=== PATIENT | male | born 1975 | race Caucasian/White ===

== ENCOUNTER 2017-01-20 02:25 | Emergency (ER) | payer OTHER ==
[2017-01-20 02:32] VITALS: TEMP 97.4
[2017-01-20] MEDS ORDERED: DIPH,PERTUS(ACELL)TETVAC-LF 0.5 ML VIAL IM ONE (02:58)
--- NOTE | 2017-01-20 03:02 | ED ---
Wound/Laceration HPI - General Chief Complaint: Wound/Laceration Stated Complaint: Hand Laceration Time Seen by Provider: 01/20/17 02:35 Source: patient, RN notes reviewed Mode of arrival: ambulatory Limitations: no limitations - History of Present Illness Initial Comments: Patient is a 40-year-old male presents to the emergency room for evaluation left hand laceration. Patient states he was cutting with an ax and accidentally got his hand. Patient states he is not sure when his last tetanus vaccine was. Patient denies tingling in his fingers. Patient states he immediately cleaned the area with peroxide after the incident. Patient denies any other injuries during incident. Patient denies taking blood thinners. - Related Data Home Medications Medication Instructions Recorded Confirmed Citalopram Hydrobromide [CeleXA] 20 mg PO DAILY 08/24/16 01/20/17 Metoprolol Tartrate [Lopressor] 50 mg PO DAILY 08/25/16 01/20/17 Allergies Allergy/AdvReac Type Severity Reaction Status Date / Time No Known Allergies Allergy Verified 08/25/16 09:03 Review of Systems ROS Statement: Those systems with pertinent positive or pertinent negative responses have been documented in the HPI. ROS Other: All systems not noted in ROS Statement are negative. Past Medical History Past Medical History: Hypertension Additional Past Medical History / Comment(s): pancreatitis, gall bladder sludge , elevated lever enzymes History of Any Multi-Drug Resistant Organisms: None Reported Past Surgical History: No Surgical Hx Reported Past Anesthesia/Blood Transfusion Reactions: No Reported Reaction Past Psychological History: PTSD Smoking Status: Never smoker Past Alcohol Use History: Daily Past Drug Use History: None Reported - Past Family History Mother Additional Family Medical History / Comment(s): Pancreatitis General Exam - General Exam Comments Initial Comments: Sitting in exam room in no acute distress. Limitations: no limitations General appearance: alert, in no apparent distress Head exam: Present: atraumatic, normocephalic, normal inspection Eye exam: Present: normal appearance ENT exam: Present: normal exam Neck exam: Present: normal inspection Respiratory exam: Absent: respiratory distress Left Hand Wrist exam: Present: full ROM, laceration (4 cm laceration along the thenar eminence. Another 1 cm laceration superior to the first laceration.). Absent: tenderness, swelling Hand L/R Front: 1 - laceration (4 cm) 2 - laceration (1 cm) Neuro motor exam: Present: wrist extension intact, thumb opposition intact, thumb IP flexion intact, thumb adduction intact, fingers 2-5 abduction intact Vascular: Present: normal capillary refill (Capillary refill less than 2 seconds ), radial pulse (2+), ulnar pulse (2+) Back exam: Present: normal inspection Neurological exam: Present: alert, oriented X3, CN II-XII intact, normal gait Psychiatric exam: Present: normal affect, normal mood Skin exam: Present: warm, dry. Absent: rash Course Vital Signs 01/20/17 01/20/17 02:28 04:02 Temperature 97.4 F L Pulse Rate 83 74 Respiratory 18 16 Rate Blood Pressure 136/65 128/72 O2 Sat by Pulse 97 97 Oximetry Procedures - Laceration Laceration #1 Consent Obtained: verbal consent Indication: laceration Site: other (left hand) Size (cm): 1 Description: linear Depth: simple, single layer Anesthetic Used: lidocaine 1% Anesthesia Technique: local infiltration Amount (mls): 1 Pre-repair: wound explored, irrigated extensively Type of Sutures: nylon Size of Sutures: 5-0 Number of Sutures: 2 Technique: simple, interrupted Patient Tolerated Procedure: well, no complications Laceration #2 Consent Obtained: verbal consent Indication: laceration Site: other (left hand) Size (cm): 4 Description: linear Depth: simple, single layer Anesthetic Used: lidocaine 1% Anesthesia Technique: local infiltration Amount (mls): 3 Pre-repair: wound explored, irrigated extensively Type of Sutures: nylon Size of Sutures: 5-0 Number of Sutures: 4 Technique: simple, interrupted Patient Tolerated Procedure: well, no complications Medical Decision Making - Medical Decision Making Patient is a 41-year-old male presents to the emergency room for evaluation of left hand lacerations. Lacerations repaired with sutures. Patient was updated on his tetanus vaccine. Advised patient to return in 10-12 days for suture removal. Patient states he understands everything that was discussed with him. Return parameters discussed. Case discussed with Dr. Galeano. Disposition Clinical Impression: Hand laceration Disposition: HOME SELF-CARE Condition: Good Instructions: Laceration (ED), Care For Your Stitches (ED) Additional Instructions: Clean suture area with a damp cloth. Please return in 10-12 days for suture removal. Take Tylenol or Motrin as needed for pain. Please follow up with primary care provider in 1-2 days. If any new symptom arises or symptoms worsen , return to ER as soon as possible. Referrals: Cleo Landry MD [Primary Care Provider] - 1-2 days Time of Disposition: 03:58
[2017-01-20 04:04] VITALS: BP 128/72; PULSE 74; RESP 16
== END 2017-01-20 04:02 | disposition home or self-care (01) ==
LOC: EC 02:25
DX: S61.412A Laceration without foreign body of left hand, initial encounter (principal); I10 Essential (primary) hypertension; F43.10 Post-traumatic stress disorder, unspecified; Z23 Encounter for immunization; Z79.899 Other long term (current) drug therapy; W27.0XXA Contact with workbench tool, initial encounter
CPT/HCPCS: 12002; 90471; 90715; 99282

== ENCOUNTER → 2018-05-02 | Outpatient (CLI) | payer OTHER ==
[2018-05-02 15:49] LABS: Basophils # (A) 0.1 k/uL (0-0.2); Basophils % (A) 1 %; Eosinophils # (A) 0.2 k/uL (0-0.7); Eosinophils % (A) 2 %; HCT 46.3 % (39.0-53.0); HGB 14.5 gm/dL (13.0-17.5); Lymphocytes # (A) 3.5 k/uL (1.0-4.8); Lymphocytes % (A) 33 %; MCH 29.1 pg (25.0-35.0); MCHC 31.4 g/dL (31.0-37.0); MCV 92.7 fL (80.0-100.0); Mean Platelet Volume 7.4; Monocytes # (A) 0.8 k/uL (0-1.0); Monocytes % (A) 7 %; Neutrophils # (A) 6.1 k/uL (1.3-7.7); Neutrophils % (A) 56 %; Platelet Count 153 k/uL (150-450); RBC 4.99 m/uL (4.30-5.90); RDW 13.5 % (11.5-15.5); WBC 10.8 k/uL (3.8-10.6)
[2018-05-02 15:54] LABS: ALT 71 U/L (21-72); AST 125 U/L (17-59); Albumin 4.6 g/dL (3.5-5.0); Alkaline Phosphatase 112 U/L (38-126); Anion Gap 19 mmol/L; Blood Urea Nitrogen 12 mg/dL (9-20); Carbon Dioxide 19 mmol/L (22-30); Chloride 103 mmol/L (98-107); Cholesterol 164 mg/dL (<200); Glucose 129 mg/dL (74-99); HDL Cholesterol 60 mg/dL (40-60); LDL Cholesterol,Calculated 71 mg/dL (0-99); Potassium 3.9 mmol/L (3.5-5.1); Sodium 141 mmol/L (137-145); Total Protein 8.9 g/dL (6.3-8.2); Triglycerides 164 mg/dL (<150)
[2018-05-02 17:55] LABS: Prostate Specific Antigen 0.11 ng/mL (0.00-4.00)
[2018-05-02 21:55] LABS: Hemoglobin A1C 5.6 % (4.0-6.0)
== END ==
LOC: LABWHC1 15:15
PROVIDERS: ATTEND Family Medicine
DX: R53.83 Other fatigue (principal); E03.9 Hypothyroidism, unspecified; I10 Essential (primary) hypertension; E78.00 Pure hypercholesterolemia, unspecified
CPT/HCPCS: 36415; 80053; 80061; 83036; 84153; 84402; 84403; 84443; 85025

== ENCOUNTER → 2018-05-26 | Outpatient (CLI) | payer OTHER | END | disposition home or self-care (01) | LOC: LABWHC1 13:38 | PROVIDERS: ATTEND Internal Medicine | DX: E29.1 Testicular hypofunction (principal) | CPT/HCPCS: 36415; 84402; 84403 ==

== ENCOUNTER 2018-09-18 18:21 | Emergency (ER) | payer OTHER ==
[2018-09-18 18:29] VITALS: BP 111/75; PULSE 89; RESP 18; TEMP 98.2
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
--- NOTE | 2018-09-18 19:47 | XR ---
EXAMINATION TYPE: XR lumbar spine 2 or 3V DATE OF EXAM: 09/18/2018 COMPARISON: NONE HISTORY: Right-sided rib pain. Back pain TECHNIQUE: 3 views FINDINGS: There is narrowing of the L5-S1 disc space. There is mild spurring of the endplates. There is no compression fracture. Posterior elements are intact. Sacroiliac joints are intact. IMPRESSION: Mild spondylotic changes. No fracture.
--- NOTE | 2018-09-18 19:55 | XR ---
EXAMINATION TYPE: XR chest 2V DATE OF EXAM: 09/18/2018 COMPARISON: 09/13/2010 HISTORY: Back pain TECHNIQUE: Frontal and lateral views of the chest are obtained. FINDINGS: Heart and mediastinum are normal. Lungs are clear. Diaphragm is normal. Bony thorax appear s normal. IMPRESSION: Normal chest. No change.
== END 2018-09-18 20:11 | disposition home or self-care (01) ==
LOC: EC 18:21
DX: S06.0X0A Concussion without loss of consciousness, initial encounter (principal); S29.9XXA Unspecified injury of thorax, initial encounter; M54.5 Low back pain; I10 Essential (primary) hypertension; F43.10 Post-traumatic stress disorder, unspecified; Z79.899 Other long term (current) drug therapy; W51.XXXA Accidental striking against or bumped into by another person, initial encounter; Y92.149 Unspecified place in prison as the place of occurrence of the external cause
CPT/HCPCS: 70450; 71046; 72100; 99284

== ENCOUNTER 2022-10-04 13:09 | Emergency (ER) | payer OTHER ==
[2022-10-04 14:15] LABS: Basophils # (A) 0.1 k/uL (0-0.2); Basophils % (A) 1 %; Eosinophils # (A) 0.2 k/uL (0-0.7); Eosinophils % (A) 3 %; HCT 46.5 % (39.0-53.0); HGB 14.7 gm/dL (13.0-17.5); Lymphocytes # (A) 2.7 k/uL (1.0-4.8); Lymphocytes % (A) 41 %; MCH 27.7 pg (25.0-35.0); MCHC 31.5 g/dL (31.0-37.0); MCV 87.8 fL (80.0-100.0); Mean Platelet Volume 7.7; Monocytes # (A) 0.3 k/uL (0-1.0); Monocytes % (A) 5 %; Neutrophils # (A) 3.2 k/uL (1.3-7.7); Neutrophils % (A) 48 %; Platelet Count 152 k/uL (150-450); RDW 13.3 % (11.5-15.5); WBC 6.6 k/uL (3.8-10.6)
[2022-10-04 14:26] LABS: Appearance,Urine Clear (Clear); Bilirubin,Urine Negative (Negative); Blood,Urine Negative (Negative); Color,Urine Yellow; Glucose,Urine (UA) Negative (Negative); Ketones,Urine Negative (Negative); Leukocyte Esterase,Urine Negative (Negative); Nitrite,Urine Negative (Negative); PH, Urine 5.5 (5.0-8.0); Protein,Urine Trace (Negative); Specific Gravity,Urine 1.024 (1.001-1.035); Urobilinogen,Urine <2.0 mg/dL (<2.0)
[2022-10-04 14:28] LABS: INR 1.1 (<1.2); Partial Thromboplastin Time 24.2 sec (22.0-30.0); Prothrombin Time 11.8 sec (9.0-12.0)
[2022-10-04 14:29] LABS: Albumin 4.1 g/dL (3.5-5.0); Calcium 8.5 mg/dL (8.4-10.2); Potassium 3.9 mmol/L (3.5-5.1); Total Bilirubin 0.7 mg/dL (0.2-1.3); Total Protein 8.1 g/dL (6.3-8.2)
--- NOTE | 2022-10-04 17:05 | CT ---
EXAMINATION TYPE: CT abdomen pelvis w con DATE OF EXAM: 10/04/2022 COMPARISON: 03/20/2014 HISTORY: elevated LFTs, 50lb weight loss in [address] DLP: 928.4 mGycm Automated exposure control for dose reduction was used. CONTRAST: Performed with IV Contrast, patient injected with 100 mL of Isovue 300. Images obtained from the diaphragm to the level of the pelvis with IV contrast. The lung bases are clear. No pleural effusion. Heart size is normal. No pericardial effusion. There i s mild fatty infiltration of the liver. Gallbladder is intact. No evidence of pancreatic mass. There is some amorphous 1 cm area of pancreatic calcification in the anterior pancreatic head and could rel ate to chronic pancreatitis. Pancreatic duct is not dilated. There is no adrenal mass. Kidneys have normal size and contour. No hydronephrosis. Ureters are not di lated. Delayed images show normal renal excretion. There is no retroperitoneal adenopathy. There is 2 cm fat-containing umbilical hernia. Appendix is posterior and medial and appears normal. Bladder distends smoothly. No inguinal hernia. No free fluid in the pelvis. No pelvic mass. There is no mesenteric edema. No ascites or free air. No sign of a bowel obstruction. The lumbar vert ebrae have normal alignment. There is narrowing at L5-S1 disc space. There is spurring anteriorly thr oughout the lumbar spine. No compression fracture. The bony pelvis is intact. The hip joints are inta ct. IMPRESSION: There is some fatty infiltration of liver which appears new compared to the old exam. Pancreatic calc ification consistent with chronic pancreatitis and appears new compared to the old exam. Hepatomegaly . Liver measures 21 cm. Liver slightly increased compared to old exam. Normal appendix.
--- NOTE | 2022-10-04 17:30 | XR ---
EXAMINATION TYPE: XR lumbar spine 2 or 3V DATE OF EXAM: 10/04/2022 COMPARISON: 09/18/2018 HISTORY: Back TECHNIQUE: 3 views FINDINGS: The lumbar vertebrae have normal alignment. There is mild spurring anteriorly of the endpla emelyn in the mid and lower lumbar spine. No compression fracture. Posterior elements are intact. Sacroi liac joints are intact. IMPRESSION: Mild hypertrophic degenerative changes. No fracture. No adverse change compared to the ol d exam.
--- NOTE | 2022-10-04 17:55 | ED ---
Recheck HPI - General Chief Complaint: Recheck/Abnormal Lab/Rx Stated Complaint: unexplained weight loss Time Seen by Provider: 10/04/22 15:31 Source: patient Mode of arrival: ambulatory Limitations: no limitations - History of Present Illness Initial Comments: Patient is a 47-year-old male presenting with chief complaint of fatigue. Patient states that he has had increasing fatigue over the last month. He also admits to unintentional 50 pound weight loss, drinks alcohol daily, has history of elevated LFTs. He admits to decreased appetite and nausea and vomiting. He denies any abdominal pain, chest pain, difficulty breathing, headache, vision or hearing changes. No history of cancer. He admits to chronic back pain. Patient has never had a colonoscopy. - Related Data Previous Rx's Medication Instructions Recorded Ondansetron Odt [Zofran Odt] 4 mg PO Q8HR PRN #20 tab 10/04/22 Allergies Allergy/AdvReac Type Severity Reaction Status Date / Time No Known Allergies Allergy Verified 10/04/22 17:50 Review of Systems ROS Statement: Those systems with pertinent positive or pertinent negative responses have been documented in the HPI. ROS Other: All systems not noted in ROS Statement are negative. Past Medical History Past Medical History: Hypertension Additional Past Medical History / Comment(s): pancreatitis, gall bladder sludge, elevated lever enzymes History of Any Multi-Drug Resistant Organisms: None Reported Past Surgical History: No Surgical Hx Reported Past Anesthesia/Blood Transfusion Reactions: No Reported Reaction Past Psychological History: PTSD Past Alcohol Use History: Daily Past Drug Use History: Marijuana - Past Family History Mother Additional Family Medical History / Comment(s): Pancreatitis General Exam Limitations: no limitations General appearance: alert, in no apparent distress Head exam: Present: atraumatic, normocephalic, normal inspection Eye exam: Present: normal appearance, PERRL, EOMI. Absent: scleral icterus, conjunctival injection, periorbital swelling Neck exam: Present: normal inspection, full ROM Respiratory exam: Present: normal lung sounds bilaterally. Absent: respiratory distress, wheezes, rales, rhonchi, stridor Cardiovascular Exam: Present: regular rate, normal rhythm, normal heart sounds. Absent: systolic murmur, diastolic murmur, rubs, gallop, clicks GI/Abdominal exam: Present: soft. Absent: distended, tenderness, guarding, rebound, rigid Neurological exam: Present: alert, oriented X3, CN II-XII intact Psychiatric exam: Present: normal affect, normal mood Skin exam: Present: warm, dry, intact, normal color. Absent: rash Course Vital Signs 10/04/22 10/04/22 13:22 18:52 Temperature 98 F 98.9 F Pulse Rate 99 81 Respiratory 20 18 Rate Blood Pressure 126/84 130/80 O2 Sat by Pulse 100 96 Oximetry Medical Decision Making - Medical Decision Making Patient is a 47-year-old male presenting with chief complaint of unintentional weight loss. Patient states he has lost 50 pounds the last month. He also admits to fatigue. Physical examination is unremarkable. CBC shows no leukocytosis or anemia. Coags are WNL. Electrolytes are WNL. There is some transaminitis and elevated alk phos, this is consistent with previous values for this patient. Urine shows trace protein. CT of the abdomen and pelvis with contrast shows some new fatty infiltration of the liver and calcification of the pancreas consistent with chronic pancreatitis. X-ray of the lumbar spine shows no adverse change compared to old exam. Patient is educated on these findings and instructed to follow-up in outpatient setting. Patient states that he needs to find a new PCP, some recommendations for provided for him on discharge paperwork. Follow-up with PCP. Report back to ER with any new or worsening symptoms. Discussed return parameters and answered all questions. Patient conveyed verbal understanding and agreed to the plan. I discussed this case in detail with my attending Dr. Cardona - Lab Data Result diagrams: 10/04/22 14:07 10/04/22 14:07 Lab Results 10/04/22 10/04/22 10/04/22 Range/Units 14:07 14:07 14:07 WBC 6.6 (3.8-10.6) k/uL RBC 5.30 (4.30-5.90) m/uL Hgb 14.7 (13.0-17.5) gm/dL Hct 46.5 (39.0-53.0) % MCV 87.8 (80.0-100.0) fL MCH 27.7 (25.0-35.0) pg MCHC 31.5 (31.0-37.0) g/dL RDW 13.3 (11.5-15.5) % Plt Count 152 (150-450) k/uL MPV 7.7 Neutrophils % 48 % Lymphocytes % 41 % Monocytes % 5 % Eosinophils % 3 % Basophils % 1 % Neutrophils # 3.2 (1.3-7.7) k/uL Lymphocytes # 2.7 (1.0-4.8) k/uL Monocytes # 0.3 (0-1.0) k/uL Eosinophils # 0.2 (0-0.7) k/uL Basophils # 0.1 (0-0.2) k/uL PT 11.8 (9.0-12.0) sec INR 1.1 (<1.2) APTT 24.2 (22.0-30.0) sec Sodium (137-145) mmol/L Potassium (3.5-5.1) mmol/L Chloride (98-107) mmol/L Carbon Dioxide (22-30) mmol/L Anion Gap mmol/L BUN (9-20) mg/dL Creatinine (0.66-1.25) mg/dL Est GFR (CKD-EPI)AfAm (>60 ml/min/1.73 sqM) Est GFR (CKD-EPI)NonAf (>60 ml/min/1.73 sqM) Glucose (74-99) mg/dL Calcium (8.4-10.2) mg/dL Total Bilirubin (0.2-1.3) mg/dL AST (17-59) U/L ALT (4-49) U/L Alkaline Phosphatase (38-126) U/L Troponin I (0.000-0.034) ng/mL Total Protein (6.3-8.2) g/dL Albumin (3.5-5.0) g/dL Amylase (30-110) U/L Lipase (23-300) U/L Urine Color Yellow Urine Appearance Clear (Clear) Urine pH 5.5 (5.0-8.0) Ur Specific [place] 1.024 (1.001-1.035) Urine Protein Trace H (Negative) Urine Glucose (UA) Negative (Negative) Urine Ketones Negative (Negative) Urine Blood Negative (Negative) Urine Nitrite Negative (Negative) Urine Bilirubin Negative (Negative) Urine Urobilinogen <2.0 (<2.0) mg/dL Ur Leukocyte Esterase Negative (Negative) 10/04/22 10/04/22 Range/Units 14:07 14:07 WBC (3.8-10.6) k/uL RBC (4.30-5.90) m/uL Hgb (13.0-17.5) gm/dL Hct (39.0-53.0) % MCV (80.0-100.0) fL MCH (25.0-35.0) pg MCHC (31.0-37.0) g/dL RDW (11.5-15.5) % Plt Count (150-450) k/uL MPV Neutrophils % % Lymphocytes % % Monocytes % % Eosinophils % % Basophils % % Neutrophils # (1.3-7.7) k/uL Lymphocytes # (1.0-4.8) k/uL Monocytes # (0-1.0) k/uL Eosinophils # (0-0.7) k/uL Basophils # (0-0.2) k/uL PT (9.0-12.0) sec INR (<1.2) APTT (22.0-30.0) sec Sodium 141 (137-145) mmol/L Potassium 3.9 (3.5-5.1) mmol/L Chloride 106 (98-107) mmol/L Carbon Dioxide 24 (22-30) mmol/L Anion Gap 11 mmol/L BUN 16 (9-20) mg/dL Creatinine 1.11 (0.66-1.25) mg/dL Est GFR (CKD-EPI)AfAm 90 (>60 ml/min/1.73 sqM) Est GFR (CKD-EPI)NonAf 78 (>60 ml/min/1.73 sqM) Glucose 159 H (74-99) mg/dL Calcium 8.5 (8.4-10.2) mg/dL Total Bilirubin 0.7 (0.2-1.3) mg/dL AST 180 H (17-59) U/L ALT 84 H (4-49) U/L Alkaline Phosphatase 195 H (38-126) U/L Troponin I <0.012 (0.000-0.034) ng/mL Total Protein 8.1 (6.3-8.2) g/dL Albumin 4.1 (3.5-5.0) g/dL Amylase 56 (30-110) U/L Lipase 35 (23-300) U/L Urine Color Urine Appearance (Clear) Urine pH (5.0-8.0) Ur Specific [place] (1.001-1.035) Urine Protein (Negative) Urine Glucose (UA) (Negative) Urine Ketones (Negative) Urine Blood (Negative) Urine Nitrite (Negative) Urine Bilirubin (Negative) Urine Urobilinogen (<2.0) mg/dL Ur Leukocyte Esterase (Negative) Disposition Clinical Impression: Fatigue, Weight loss Disposition: HOME SELF-CARE Condition: Good Instructions (If sedation given, give patient instructions): Fatigue (ED) Additional Instructions: Follow-up with PCP. Some referrals for PCP are provided for URI new discharge paperwork. Report back to ER with any new or worsening symptoms. Prescriptions: Ondansetron Odt [Zofran Odt] 4 mg PO Q8HR PRN #20 tab PRN Reason: Nausea Is patient prescribed a controlled substance at d/c from ED?: No Referrals: Nitesh Soliman MD [STAFF PHYSICIAN] - 1-2 days Alonso Flores MD [REFERRING] - 1-2 days Chavo Garcia MD [REFERRING] - 1-2 days Time of Disposition: 18:28
[2022-10-04] MEDS ORDERED: LORazepam 2 MG/ML INJ IV STA (18:26)
[2022-10-04 18:53] VITALS: BP 130/80; PULSE 81; RESP 18; TEMP 98.9
== END 2022-10-04 18:59 | disposition home or self-care (01) ==
LOC: EC 13:09
DX: R53.83 Other fatigue (principal); R63.4 Abnormal weight loss; I10 Essential (primary) hypertension; R74.01 Elevation of levels of liver transaminase levels; R74.8 Abnormal levels of other serum enzymes
CPT/HCPCS: 99284; 96374; 36415; 80053; 82150; 83690; 84484; 85025; 85610; 85730; 81003; 72100; 74177; J2060; Q9967

== ENCOUNTER → 2023-08-31 | Outpatient (CLI) | payer OTHER ==
--- NOTE | 2023-08-31 18:08 | CA ---
Transthoracic Echo Report Name: Vasu Garcia Age: 48 Gender: M : 1975 Exam Date: 08/31/2023 15:27 Exam Location: [facility] Ht (in): 72 Wt (lb): 191 Ordering Physician: Man Meadows MD Attending/Referring Phys: Dori MIRANDA [employer] Janie Nieto [facility] Procedure CPT: Indications: I51.9 DECREASED L Cardiac Hx: Technical Quality: Fair Contrast 1: Total Dose (mL): Contrast 2: Total Dose (mL): MEASUREMENTS (Male / Female) Normal Values 2D ECHO LV Diastolic Diameter PLAX 5.0 cm 4.2 - 5.9 / 3.9 - 5.3 cm LV Systolic Diameter PLAX 3.4 cm IVS Diastolic Thickness 0.9 cm 0.6 - 1.0 / 0.6 - 0.9 cm LVPW Diastolic Thickness 0.9 cm 0.6 - 1.0 / 0.6 - 0.9 cm LV Relative Wall Thickness 0.4 LVOT Diameter 2.1 cm LA Volume 55.1 cm??? 18 - 58 / 22 - 52 cm??? LA Volume Index 26.2 cm???/m??? 16 - 28 cm???/m??? Ascending Aorta Diameter 3.0 cm M-MODE Aortic Root Diameter MM 2.7 cm LA Systolic Diameter MM 4.1 cm LA Ao Ratio MM 1.5 AV Cusp Separation MM 2.1 cm DOPPLER AV Peak Velocity 124.9 cm/s AV Peak Gradient 6.2 mmHg AV Mean Velocity 93.9 cm/s AV Mean Gradient 3.7 mmHg AV Velocity Time Integral 24.0 cm LVOT Peak Velocity 97.2 cm/s LVOT Peak Gradient 3.8 mmHg LVOT Velocity Time Integral 19.3 cm LVOT Stroke Volume 66.2 cm??? LVOT Stroke Volume Index 31.7 ml/m??? LVOT Cardiac Index 2607.7 cm???/min???m??? AV Area Cont Eq vti 2.8 cm??? AV Area Cont Eq pk 2.7 cm??? MV Area PHT 4.4 cm??? Mitral E Point Velocity 47.0 cm/s Mitral A Point Velocity 54.0 cm/s Mitral E to A Ratio 0.9 MV Deceleration Time 172.4 ms LV E' Lateral Velocity 11.6 cm/s Mitral E to LV E' Lateral Ratio 4.1 LV E' Septal Velocity 6.1 cm/s Mitral E to LV E' Septal Ratio 7.7 Right Atrial Pressure 15.0 mmHg FINDINGS Left Ventricle Normal Left ventricular size, wall thickness, systolic function with no obvious regional wall motion abnormalities. Left ventricular ejection fraction is estimated at 55-60%. Right Ventricle Normal right ventricular size. Right Atrium Normal right atrial size. Left Atrium Normal left atrial size. Mitral Valve Structurally normal mitral valve. No mitral regurgitation. Aortic Valve Trileaflet aortic valve. No aortic valve stenosis or regurgitation. Tricuspid Valve Structurally normal tricuspid valve. No tricuspid regurgitation. Pulmonic Valve Pulmonic valve not well visualized. Pericardium No pericardial effusion. Aorta Normal size aortic root and proximal ascending aorta. CONCLUSIONS Normal LV function Previewed by: Dr. Noel Martino MD (Electronically Signed) Final Date: 31 August 2023 18:07
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
== END | disposition home or self-care (01) ==
LOC: RADCTMAIN 15:08
PROVIDERS: ATTEND Family Medicine
DX: J18.9 Pneumonia, unspecified organism (principal); K74.60 Unspecified cirrhosis of liver; I51.9 Heart disease, unspecified; K76.0 Fatty (change of) liver, not elsewhere classified; K86.1 Other chronic pancreatitis
CPT/HCPCS: 93306; 71250; 71260; 74150; 74160; 36415; Q9967

== ENCOUNTER 2025-03-23 07:10 | Emergency (ER) | payer OTHER ==
[2025-03-23 07:15] VITALS: RESP 18
[2025-03-23] MEDS: HYDROcodone/APAP 10-325MG 1 EACH TAB PO ONE (07:41)
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
[2025-03-23] MEDS: ceFAZolin 1,000 MG VIAL (IM USE) IM STA (09:32)
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
[2025-03-23] MEDS: DIPH,PERTUS(ACELL)TETVAC-LF 0.5 ML VIAL IM ONE (09:43)
[2025-03-23 09:52] VITALS: BP 139/87; PULSE 87; TEMP 97.9
== END 2025-03-23 09:52 | disposition other institution (70) ==
LOC: EC 07:10
DX: S02.32XA Fracture of orbital floor, left side, initial encounter for closed fracture (principal); S02.2XXA Fracture of nasal bones, initial encounter for closed fracture; H50.682 Extraocular muscle entrapment, unspecified, left eye; H53.2 Diplopia; F10.10 Alcohol abuse, uncomplicated; Z23 Encounter for immunization; Y04.0XXA Assault by unarmed brawl or fight, initial encounter; Y92.59 Other trade areas as the place of occurrence of the external cause
CPT/HCPCS: 99285; 96372; 90471; 71101; 72125; 70450; 90715; J0690